=== PATIENT | female | born 1965 | race African-American/Black ===

== ENCOUNTER 2019-05-14 20:52 | Emergency (ER) | payer OTHER ==
[~2019-05-14] VITALS: Ht 162.6 cm; Wt 130.2 kg
[2019-05-14 21:00] VITALS: Ht 162.6 cm; Wt 130.2 kg
[2019-05-14 22:55] VITALS: BP 108/65
== END 2019-05-14 22:55 | disposition home or self-care (01) ==
LOC: ED 20:52
DX: L53.0 Toxic erythema (principal); T39.315A Adverse effect of propionic acid derivatives, initial encounter; I10 Essential (primary) hypertension; K21.9 Gastro-esophageal reflux disease without esophagitis; Z88.6 Allergy status to analgesic agent; Y92.89 Other specified places as the place of occurrence of the external cause
CPT/HCPCS: Q0163